=== PATIENT | female | born 1960 | race Caucasian/White ===

== ENCOUNTER 2017-06-15 22:06 | Emergency (ER) | payer OTHER ==
[~2017-06-15] VITALS: Ht 167.6 cm; Wt 66.0 kg
[~2017-06-15 22:06] MED LIST: IBUP800T23 PO; LISI-360 PO
[2017-06-15 22:25] VITALS: BP 150/82; PULSE 80; RESP 16; TEMP 98.6; O2SAT 98
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
[2017-06-16 03:52] LABS: AUTOMATED NEUTROPHIL # 3.1 TH/MM3 (1.8-7.7); BASOPHIL # 0.1 TH/MM3 (0-0.2); BASOPHIL % 1.3 % (0.0-2.0); EOSINOPHIL # 0.2 TH/MM3 (0-0.4); EOSINOPHIL % 2.3 % (0.0-4.0); HEMATOCRIT 42.6 % (35.0-46.0); HEMO FLAGS DIFF FINAL; LYMPH % 44.7 % (9.0-44.0); LYMPHOCYTE # 3.1 TH/MM3 (1.0-4.8); MEAN CELL VOLUME 96.8 FL (80.0-100.0); MEAN CORPUSCULAR HEMOGLOBIN 32.3 PG (27.0-34.0); MEAN CORPUSCULAR HGB CONC 33.4 % (32.0-36.0); MONO % 6.6 % (0.0-8.0); NEUT % 45.1 % (16.0-70.0); PLATELET COUNT 179 TH/MM3 (150-450); RED CELL DISTRIBUTION WIDTH 13.3 % (11.6-17.2); WHITE BLOOD COUNT 6.9 TH/MM3 (4.0-11.0)
[2017-06-16 04:27] LABS: ALKALINE PHOSPHATASE 101 U/L (45-117); ALT (GPT) 17 U/L (10-53); ANION GAP 10 MEQ/L (5-15); AST (GOT) 14 U/L (15-37); BLOOD UREA NITROGEN 6 MG/DL (7-18); CHLORIDE 107 MEQ/L (98-107); GLOMERULAR FILTRATION RATE 88 ML/MIN (>89); POTASSIUM 3.8 MEQ/L (3.5-5.1); SODIUM (NA) 141 MEQ/L (136-145); TOTAL BILIRUBIN ADULT 0.4 MG/DL (0.2-1.0)
[2017-06-16 04:30] LABS: BACTERIA, URINE RARE /hpf; BLOOD, URINE NEG (NEG); COMMENT (UR) CULT NOT INDICATED; CULTURE IF INDICATED CULT NOT INDICATED; GLUCOSE,URINE NEG (NEG); KETONE, URINE NEG (NEG); NITRITE,URINE NEG (NEG); URINE COLOR COLORLESS (YELLW/STRAW)
[2017-06-16 07:20] VITALS: BP 159/95; PULSE 67; RESP 20; TEMP 98; O2SAT 97
[2017-06-16] MEDS ORDERED: ACETAMINOPHEN 325 MG TAB PO ONE (10:00)
[2017-06-16 11:41] VITALS: BP 182/93; PULSE 77; RESP 18
[2017-06-16 17:54] VITALS: BP 200/116; PULSE 65; RESP 20; O2SAT 100
[2017-06-16 17:58] VITALS: BP 197/101
[2017-06-16] MEDS ORDERED: CYCL5TAB PO (19:22)
[2017-06-16] MEDS ORDERED: LISI10TA3 PO (19:22)
[2017-06-16] MEDS ORDERED: VERA40TA PO (19:22)
[2017-06-16] MEDS ORDERED: cloNIDine HCL 0.1 MG TAB PO ONE (19:45)
[2017-06-16] MEDS ORDERED: LISINOPRIL 10 MG TAB PO ONE (19:45)
[2017-06-16 23:07] VITALS: BP 108/54; PULSE 66; RESP 16
[2017-06-17 02:41] VITALS: BP 118/55; PULSE 51; RESP 16
[2017-06-17 06:49] VITALS: BP 137/58; PULSE 76; RESP 20; O2SAT 98
--- NOTE | 2017-06-17 07:25 | PD ---
Data Data Last Documented VS Vital Signs Date Time Temp Pulse Resp B/P (MAP) Pulse Ox O2 Delivery O2 Flow Rate FiO2 06/17/17 06:49 76 20 137/58 (84) 98 06/16/17 17:54 Room Air 06/16/17 07:20 98.0 Orders Orders Complete Blood Count With Diff (06/15/17 22:32) Comprehensive Metabolic Panel (06/15/17 22:32) Urinalysis - C+S If Indicated (06/15/17 22:32) Psych Screen (06/15/17 22:32) Drug Screen, Random Urine (06/15/17 22:32) Diet Regular Basic (06/16/17 Breakfast) Acetaminophen (Tylenol) (06/16/17 10:00) Lisinopril (Prinivil) (06/16/17 19:45) Clonidine (Catapres) (06/16/17 19:45) Diet Regular Basic (06/17/17 Breakfast) Labs Laboratory Tests Test 06/15/17 22:32 06/15/17 22:45 06/15/17 23:16 Blood Urea Nitrogen 6 MG/DL Creatinine 0.69 MG/DL Random Glucose 92 MG/DL Total Protein 7.7 GM/DL Albumin 3.8 GM/DL Calcium Level 8.8 MG/DL Alkaline Phosphatase 101 U/L Aspartate Amino Transf (AST/SGOT) 14 U/L Alanine Aminotransferase (ALT/SGPT) 17 U/L Total Bilirubin 0.4 MG/DL Sodium Level 141 MEQ/L Potassium Level 3.8 MEQ/L Chloride Level 107 MEQ/L Carbon Dioxide Level 24.0 MEQ/L Anion Gap 10 MEQ/L Estimat Glomerular Filtration Rate 88 ML/MIN Urine Opiates Screen NEG Urine Barbiturates Screen NEG Urine Amphetamines Screen NEG Urine Benzodiazepines Screen NEG Urine Cocaine Screen NEG Urine Cannabinoids Screen NEG Urine Color COLORLESS Urine Turbidity CLEAR Urine pH 5.0 Urine Specific [place] 1.002 Urine Protein NEG mg/dL Urine Glucose (UA) NEG mg/dL Urine Ketones NEG mg/dL Urine Occult Blood NEG Urine Nitrite NEG Urine Bilirubin NEG Urine Urobilinogen LESS THAN 2.0 MG/DL Urine Leukocyte Esterase NEG Urine RBC LESS THAN 1 /hpf Urine WBC 1 /hpf Urine Bacteria RARE /hpf Microscopic Urinalysis Comment CULT NOT INDICATED White Blood Count 6.9 TH/MM3 Red Blood Count 4.40 MIL/MM3 Hemoglobin 14.2 GM/DL Hematocrit 42.6 % Mean Corpuscular Volume 96.8 FL Mean Corpuscular Hemoglobin 32.3 PG Mean Corpuscular Hemoglobin Concent 33.4 % Red Cell Distribution Width 13.3 % Platelet Count 179 TH/MM3 Mean Platelet Volume 7.5 FL Neutrophils (%) (Auto) 45.1 % Lymphocytes (%) (Auto) 44.7 % Monocytes (%) (Auto) 6.6 % Eosinophils (%) (Auto) 2.3 % Basophils (%) (Auto) 1.3 % Neutrophils # (Auto) 3.1 TH/MM3 Lymphocytes # (Auto) 3.1 TH/MM3 Monocytes # (Auto) 0.5 TH/MM3 Eosinophils # (Auto) 0.2 TH/MM3 Basophils # (Auto) 0.1 TH/MM3 CBC Comment DIFF FINAL Differential Comment [facility] Supervised Visit with IDALIA: No Narrative Course I was approached by Chelsie nurse who informed me the psychiatrist had seen the patient and lifted her Villegas Act. She was given information for follow up with [facility] and is safe for discharge with her boyfriend per psychiatry. Diagnosis Primary Impression: Suicidal ideations Condition: Stable Triny Mas MD Jun 17, 2017 07:25
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
== END 2017-06-17 08:31 | disposition home or self-care (01) ==
LOC: NEPD 22:06 → NEPJ 06-17 08:31
DX: F43.20 Adjustment disorder, unspecified (principal); R45.851 Suicidal ideations; F10.10 Alcohol abuse, uncomplicated; I10 Essential (primary) hypertension; J44.9 Chronic obstructive pulmonary disease, unspecified; G47.30 Sleep apnea, unspecified
CPT/HCPCS: 80053; 80307; 81001; 85025; 99284

== ENCOUNTER 2017-08-05 03:44 | Emergency (ER) | payer OTHER ==
[~2017-08-05] VITALS: Ht 167.6 cm; Wt 65.0 kg
[~2017-08-05 03:44] MED LIST changes: +CYCL5TAB PO; -IBUP800T23 PO; -LISI-360 PO; +LISI10TA3 PO; +VERA40TA PO
[2017-08-05 03:55] VITALS: BP 115/72; PULSE 72; RESP 16; TEMP 97.8; O2SAT 97
[2017-08-05 05:17] LABS: BASOPHIL # 0.1 TH/MM3 (0-0.2); BASOPHIL % 1.8 % (0.0-2.0); EOSINOPHIL # 0.1 TH/MM3 (0-0.4); EOSINOPHIL % 1.5 % (0.0-4.0); HEMATOCRIT 31.7 % (35.0-46.0); LYMPHOCYTE # 2.7 TH/MM3 (1.0-4.8); MEAN CELL VOLUME 96.7 FL (80.0-100.0); MEAN CORPUSCULAR HEMOGLOBIN 32.4 PG (27.0-34.0); MEAN CORPUSCULAR HGB CONC 33.5 % (32.0-36.0); MONO % 4.3 % (0.0-8.0); NEUT % 24.4 % (16.0-70.0); PLATELET COUNT 130 TH/MM3 (150-450); RED BLOOD COUNT 3.28 MIL/MM3 (4.00-5.30); RED CELL DISTRIBUTION WIDTH 13.4 % (11.6-17.2)
[2017-08-05 05:22] LABS: HEMO FLAGS AUTO DIFF
[2017-08-05 05:29] VITALS: BP 102/64
[2017-08-05 05:32] VITALS: BP 100/66; RESP 18
[2017-08-05 05:34] VITALS: BP 99/59; RESP 18
[2017-08-05 05:46] LABS: MAGNESIUM 2.1 MG/DL (1.5-2.5); POTASSIUM 3.5 MEQ/L (3.5-5.1)
[2017-08-05] MEDS ORDERED: SODIUM CHLOR 0.9% 1000 ML INJ 1,000 ML IV ONE (06:15)
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
--- NOTE | 2017-08-05 06:45 | PD ---
Physical Exam Date Seen by Provider: Aug 05, 2017 Time Seen by Provider: 06:43 Narrative Skin: Patient is a bleeding varicosity to the right lower lateral leg. Data Data Last Documented VS Vital Signs Date Time Temp Pulse Resp B/P (MAP) Pulse Ox O2 Delivery O2 Flow Rate FiO2 08/05/17 05:34 89 18 99/59 (72) 08/05/17 04:07 98 Room Air 08/05/17 03:55 97.8 Orders Orders Electrocardiogram (08/05/17 ) Basic Metabolic Panel (Bmp) (08/05/17 05:02) Complete Blood Count With Diff (08/05/17 05:02) Magnesium (Mg) (08/05/17 05:02) Troponin I (08/05/17 05:02) Blood Glucose (08/05/17 05:02) Orthostatic Vital Signs (08/05/17 05:02) Protein Corrected Calcium(Pcc) (08/05/17 05:00) Sodium Chlor 0.9% 1000 Ml Inj (Ns 1000 M (08/05/17 06:15) Labs Laboratory Tests Test 08/05/17 05:00 White Blood Count 4.0 TH/MM3 Red Blood Count 3.28 MIL/MM3 Hemoglobin 10.6 GM/DL Hematocrit 31.7 % Mean Corpuscular Volume 96.7 FL Mean Corpuscular Hemoglobin 32.4 PG Mean Corpuscular Hemoglobin Concent 33.5 % Red Cell Distribution Width 13.4 % Platelet Count 130 TH/MM3 Mean Platelet Volume 7.6 FL Neutrophils (%) (Auto) 24.4 % Lymphocytes (%) (Auto) 68.0 % Monocytes (%) (Auto) 4.3 % Eosinophils (%) (Auto) 1.5 % Basophils (%) (Auto) 1.8 % Neutrophils # (Auto) 1.0 TH/MM3 Lymphocytes # (Auto) 2.7 TH/MM3 Monocytes # (Auto) 0.2 TH/MM3 Eosinophils # (Auto) 0.1 TH/MM3 Basophils # (Auto) 0.1 TH/MM3 CBC Comment AUTO DIFF Blood Urea Nitrogen 13 MG/DL Creatinine 0.68 MG/DL Random Glucose 71 MG/DL Total Protein 6.0 GM/DL Calcium Level 7.4 MG/DL Magnesium Level 2.1 MG/DL Sodium Level 144 MEQ/L Potassium Level 3.5 MEQ/L Chloride Level 111 MEQ/L Carbon Dioxide Level 21.0 MEQ/L Anion Gap 12 MEQ/L Estimat Glomerular Filtration Rate 90 ML/MIN Protein Corrected Calcium 8.0 MG/DL Troponin I 0.05 NG/ML [facility] Medical Record Reviewed: Yes Supervised Visit with IDALIA: Yes Differential Diagnosis . Narrative Course Patient's varicosity ligated with 2 simple sutures. Procedures Procedure Narrative LACERATION LOCATION: Right lower lateral leg LENGTH: 3 mm NUMBER OF STITCHES/FELIPE: 2 REPAIR: The area of the laceration was prepped with Betadine and sterilely draped. The laceration was infiltrated with 1% lidocaine-]. The wound was copiously irrigated and explored without evidence of foreign body, tendon injury or neurovascular injury. The wound was closed using 4-0 proline. This was a simple single layer repair. A sterile dressing was applied. The patient was advised to keep the dressing clean and dry. Patient tolerated the procedure well. Diagnosis Primary Impression: Bleeding from varicose veins of right lower extremity Patient Instructions: General Instructions Additional Instruction: Rest. Elevation. Tylenol Daily wound care with soap, water, Neosporin. Sutures out in 7 days. Return to the ER if any problems. Med/Other Pt SpecificInfo: Wound Care Disposition: DISCHARGE HOME Condition: Stable Gary Lizarraga Aug 05, 2017 06:45
[2017-08-05 07:02] LABS: PLATELET ESTIMATE SMEAR LOW (NORMAL); PLATELET MORPHOLOGY NORMAL (NORMAL); SCAN/DIFF AUTO DIFF CONFIRMED
[2017-08-05 07:03] VITALS: BP 118/59; PULSE 78; RESP 18; O2SAT 99
--- NOTE | 2017-08-06 08:47 | EKG ---
Date Performed: 08/05/2017 Time Performed: 05:23:02 PTAGE: 57 years EKG: Sinus rhythm VOLTAGE CRITERIA FOR LVH ABNORMAL ECG NO PREVIOUS TRACING DOCTOR: Javier Harrison Interpretating Date/Time 08/06/2017 08:44:52
== END 2017-08-05 08:00 | disposition home or self-care (01) ==
LOC: NEPE 03:44
DX: I83.891 Varicose veins of right lower extremity with other complications (principal); R58 Hemorrhage, not elsewhere classified; R55 Syncope and collapse
CPT/HCPCS: 12001; 80048; 83735; 84155; 84484; 85025; 93005; 99284; J7030

== ENCOUNTER 2017-08-20 14:23 | Emergency (ER) | payer OTHER ==
[~2017-08-20] VITALS: Ht 167.6 cm; Wt 68.0 kg
[2017-08-20 14:24] VITALS: BP 144/72; PULSE 73; RESP 16; TEMP 97.8; O2SAT 98
[2017-08-20] MEDS ORDERED: NAPR-855 PO (15:43)
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
[2017-08-20] MEDS ORDERED: LISI10TA3 PO (15:59)
[2017-08-20] MEDS ORDERED: VERA40TA PO (15:59)
== END 2017-08-20 16:17 | disposition home or self-care (01) ==
LOC: NEPK 14:23 → NETRI 16:17
DX: Z48.02 Encounter for removal of sutures (principal); F31.9 Bipolar disorder, unspecified; F41.9 Anxiety disorder, unspecified; I10 Essential (primary) hypertension; K21.9 Gastro-esophageal reflux disease without esophagitis; J44.9 Chronic obstructive pulmonary disease, unspecified
CPT/HCPCS: 99281

== ENCOUNTER 2018-02-02 14:34 | Emergency (ER) | payer OTHER ==
[~2018-02-02] VITALS: Ht 167.6 cm; Wt 56.0 kg
[~2018-02-02 14:34] MED LIST changes: -CYCL5TAB PO; +NAPR-855 PO
[2018-02-02 14:49] VITALS: BP 178/91; PULSE 78; RESP 16; TEMP 97.3; O2SAT 95
[2018-02-02] MEDS ORDERED: IBUPROFEN 600 MG TAB PO ONE (15:15)
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
[2018-02-02 16:35] LABS: AUTOMATED NEUTROPHIL # 3.5 TH/MM3 (1.8-7.7); BASOPHIL # 0.1 TH/MM3 (0-0.2); EOSINOPHIL # 0.2 TH/MM3 (0-0.4); EOSINOPHIL % 2.4 % (0.0-4.0); HEMATOCRIT 41.6 % (35.0-46.0); HEMOGLOBIN 14.2 GM/DL (11.6-15.3); LYMPH % 42.7 % (9.0-44.0); LYMPHOCYTE # 3.1 TH/MM3 (1.0-4.8); MEAN CELL VOLUME 95.7 FL (80.0-100.0); MEAN CORPUSCULAR HEMOGLOBIN 32.6 PG (27.0-34.0); MEAN PLATELET VOLUME 7.4 FL (7.0-11.0); MONO % 5.3 % (0.0-8.0); MONOCYTE # 0.4 TH/MM3 (0-0.9); NEUT % 47.6 % (16.0-70.0); PLATELET COUNT 203 TH/MM3 (150-450); RED BLOOD COUNT 4.35 MIL/MM3 (4.00-5.30); RED CELL DISTRIBUTION WIDTH 12.6 % (11.6-17.2); WHITE BLOOD COUNT 7.3 TH/MM3 (4.0-11.0)
[2018-02-02 16:40] VITALS: BP 95/54; PULSE 72; RESP 20; O2SAT 97
[2018-02-02 16:46] LABS: ALBUMIN 3.6 GM/DL (3.4-5.0); ALT (GPT) 180 U/L (10-53); AST (GOT) 102 U/L (15-37); BICARBONATE 21.7 MEQ/L (21.0-32.0); BLOOD UREA NITROGEN 12 MG/DL (7-18); CALCIUM 8.6 MG/DL (8.5-10.1); CHLORIDE 102 MEQ/L (98-107); CREATININE 0.74 MG/DL (0.50-1.00); GLOMERULAR FILTRATION RATE 81 ML/MIN (>89); GLUCOSE,RANDOM 74 MG/DL (74-106); SODIUM (NA) 139 MEQ/L (136-145)
[2018-02-02 16:56] LABS: ALKALINE PHOSPHATASE 107 U/L (45-117); TOTAL BILIRUBIN ADULT 0.9 MG/DL (0.2-1.0); TOTAL PROTEIN 7.6 GM/DL (6.4-8.2)
[2018-02-02 18:00] VITALS: BP 121/68; PULSE 66; RESP 16; TEMP 98.4; O2SAT 98
[2018-02-02 23:37] VITALS: BP 161/88; PULSE 72; RESP 18; TEMP 98.6; O2SAT 97
[2018-02-03 05:31] VITALS: BP 158/96; PULSE 72; RESP 18; TEMP 98; O2SAT 95
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
--- NOTE | 2018-02-03 10:46 | PD ---
Data Data Last Documented VS Vital Signs Date Time Temp Pulse Resp B/P (MAP) Pulse Ox O2 Delivery O2 Flow Rate FiO2 02/03/18 05:31 98.0 72 18 158/96 (116) 95 Room Air Orders Orders Complete Blood Count With Diff (02/02/18 15:06) Comprehensive Metabolic Panel (02/02/18 15:06) Thyroid Stimulating Hormone (02/02/18 15:06) Psych Screen (02/02/18 15:06) Drug Screen, Random Urine (02/02/18 15:06) Alcohol (Ethanol) (02/02/18 15:06) Ibuprofen (Motrin) (02/02/18 15:15) Diet Regular Basic (02/02/18 Dinner) Diet Regular Basic (02/03/18 Breakfast) Labs Laboratory Tests Test 02/02/18 16:00 02/02/18 17:00 White Blood Count 7.3 TH/MM3 Red Blood Count 4.35 MIL/MM3 Hemoglobin 14.2 GM/DL Hematocrit 41.6 % Mean Corpuscular Volume 95.7 FL Mean Corpuscular Hemoglobin 32.6 PG Mean Corpuscular Hemoglobin Concent 34.0 % Red Cell Distribution Width 12.6 % Platelet Count 203 TH/MM3 Mean Platelet Volume 7.4 FL Neutrophils (%) (Auto) 47.6 % Lymphocytes (%) (Auto) 42.7 % Monocytes (%) (Auto) 5.3 % Eosinophils (%) (Auto) 2.4 % Basophils (%) (Auto) 2.0 % Neutrophils # (Auto) 3.5 TH/MM3 Lymphocytes # (Auto) 3.1 TH/MM3 Monocytes # (Auto) 0.4 TH/MM3 Eosinophils # (Auto) 0.2 TH/MM3 Basophils # (Auto) 0.1 TH/MM3 CBC Comment DIFF FINAL Differential Comment Blood Urea Nitrogen 12 MG/DL Creatinine 0.74 MG/DL Random Glucose 74 MG/DL Total Protein 7.6 GM/DL Albumin 3.6 GM/DL Calcium Level 8.6 MG/DL Alkaline Phosphatase 107 U/L Aspartate Amino Transf (AST/SGOT) 102 U/L Alanine Aminotransferase (ALT/SGPT) 180 U/L Total Bilirubin 0.9 MG/DL Sodium Level 139 MEQ/L Potassium Level 3.9 MEQ/L Chloride Level 102 MEQ/L Carbon Dioxide Level 21.7 MEQ/L Anion Gap 15 MEQ/L Estimat Glomerular Filtration Rate 81 ML/MIN Thyroid Stimulating Hormone 3rd Gen 0.401 uIU/ML Ethyl Alcohol Level 244 MG/DL Urine Opiates Screen NEG Urine Barbiturates Screen NEG Urine Amphetamines Screen NEG Urine Benzodiazepines Screen NEG Urine Cocaine Screen POS Urine Cannabinoids Screen NEG MDM Medical Record Reviewed: Yes Supervised Visit with IDALIA: No Narrative Course Please see previous providers notes. This patient has been cleared by the psychiatry team. She has no medical issues that would warrant further hospitalization. She is stable for discharge. Diagnosis Primary Impression: Alcohol-induced mood disorder Additional Impression: Cocaine abuse Med/Other Pt SpecificInfo: No Change to Meds Disposition: 01 DISCHARGE HOME Condition: Stable Phillip Weston February 03, 2018 10:46
== END 2018-02-03 11:02 | disposition home or self-care (01) ==
LOC: NEPD 14:34 → NEPJ 02-03 11:02
DX: F10.94 Alcohol use, unspecified with alcohol-induced mood disorder (principal); F14.10 Cocaine abuse, uncomplicated; F31.9 Bipolar disorder, unspecified; F41.9 Anxiety disorder, unspecified; I10 Essential (primary) hypertension; J44.9 Chronic obstructive pulmonary disease, unspecified; K21.9 Gastro-esophageal reflux disease without esophagitis; G47.30 Sleep apnea, unspecified; Z79.899 Other long term (current) drug therapy
CPT/HCPCS: 80053; 80307; 84443; 85025; 99283

== ENCOUNTER 2018-02-23 19:19 | Emergency (ER) | payer OTHER ==
[~2018-02-23 19:19] MED LIST changes: -NAPR-855 PO
[2018-02-23 21:03] VITALS: BP 138/84; PULSE 91; RESP 18; TEMP 97.4; O2SAT 98
[2018-02-23 21:43] VITALS: BP 125/90; PULSE 85; RESP 18; TEMP 98.2; O2SAT 97
[2018-02-23 22:00] LABS: AUTOMATED NEUTROPHIL # 1.7 TH/MM3 (1.8-7.7); BASOPHIL # 0.1 TH/MM3 (0-0.2); BASOPHIL % 1.4 % (0.0-2.0); EOSINOPHIL # 0.1 TH/MM3 (0-0.4); EOSINOPHIL % 2.1 % (0.0-4.0); HEMATOCRIT 40.7 % (35.0-46.0); HEMOGLOBIN 13.8 GM/DL (11.6-15.3); LYMPH % 54.9 % (9.0-44.0); LYMPHOCYTE # 2.8 TH/MM3 (1.0-4.8); MEAN CELL VOLUME 93.3 FL (80.0-100.0); MEAN CORPUSCULAR HEMOGLOBIN 31.6 PG (27.0-34.0); MEAN CORPUSCULAR HGB CONC 33.9 % (32.0-36.0); MEAN PLATELET VOLUME 7.5 FL (7.0-11.0); MONO % 8.9 % (0.0-8.0); MONOCYTE # 0.5 TH/MM3 (0-0.9); NEUT % 32.7 % (16.0-70.0); PLATELET COUNT 155 TH/MM3 (150-450); RED BLOOD COUNT 4.36 MIL/MM3 (4.00-5.30); RED CELL DISTRIBUTION WIDTH 12.8 % (11.6-17.2); WHITE BLOOD COUNT 5.1 TH/MM3 (4.0-11.0)
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
[2018-02-23 22:03] LABS: BACTERIA, URINE RARE /hpf; BILIRUBIN, URINE NEG (NEG); BLOOD, URINE NEG (NEG); GLUCOSE,URINE NEG (NEG); KETONE, URINE NEG (NEG); NITRITE,URINE NEG (NEG); URINE COLOR LIGHT-YELLOW (YELLW/STRAW); URINE LEUKOCYTE ESTERASE TRACE (NEG)
[2018-02-23 22:23] LABS: ALBUMIN 3.8 GM/DL (3.4-5.0); AST (GOT) 130 U/L (15-37); BICARBONATE 26.3 MEQ/L (21.0-32.0); BLOOD UREA NITROGEN 8 MG/DL (7-18); CALCIUM 8.6 MG/DL (8.5-10.1); CHLORIDE 103 MEQ/L (98-107); CREATININE 0.77 MG/DL (0.50-1.00); GLOMERULAR FILTRATION RATE 78 ML/MIN (>89); GLUCOSE,RANDOM 93 MG/DL (74-106); SODIUM (NA) 140 MEQ/L (136-145)
[2018-02-23 22:24] LABS: ALT (GPT) 106 U/L (10-53)
[2018-02-23 22:28] LABS: TOXIC GRANULATION 1+ (NORMAL)
[2018-02-23 22:35] LABS: ALKALINE PHOSPHATASE 122 U/L (45-117); TOTAL BILIRUBIN ADULT 0.6 MG/DL (0.2-1.0); TOTAL PROTEIN 8.1 GM/DL (6.4-8.2)
[2018-02-23 22:36] LABS: ACETAMINOPHEN LESS THAN 2.0 MCG/ML (10.0-30.0)
[2018-02-23] MEDS ORDERED: LORazepam 2 MG TAB PO PRN (22:45)
[2018-02-23] MEDS ORDERED: LORazepam 1 MG TAB PO PRN (22:45)
[2018-02-23] MEDS ORDERED: LORazepam 2 MG/ML VIAL IV PUSH PRN ×4 (22:45)
[2018-02-23] MEDS ORDERED: FLUMAZENIL 0.5 MG/5 ML VIAL IV PUSH PRN (22:45)
[2018-02-24 02:09] VITALS: BP 120/71; PULSE 80; RESP 18; TEMP 98.2; O2SAT 97
[2018-02-24 06:31] VITALS: BP 116/70; PULSE 88; RESP 18; TEMP 98.6; O2SAT 95
--- NOTE | 2018-02-24 09:52 | PD ---
Physical Exam Date Seen by Provider: February 24, 2018 Narrative 57-year-old female presented to the emergency department for voluntary admission for polysubstance use. She was evaluated by the previous provider and medically cleared to see psych. She is due for transport to the [facility] this morning however, she says that she must go home prior to going to the clinic. She says that she would drive herself to the facility. She will be discharged home and advised to follow-up as discussed. Data Data Last Documented VS Vital Signs Date Time Temp Pulse Resp B/P (MAP) Pulse Ox O2 Delivery O2 Flow Rate FiO2 02/24/18 10:00 02/24/18 06:31 98.6 88 18 95 Room Air Orders Orders Complete Blood Count With Diff (02/23/18 21:31) Comprehensive Metabolic Panel (02/23/18 21:31) Urinalysis - C+S If Indicated (02/23/18 21:31) Ed Urine Pregnancytest Poc (02/23/18 21:31) Psych Screen (02/23/18 21:31) Drug Screen, Random Urine (02/23/18 21:31) Alcohol (Ethanol) (02/23/18 21:31) Salicylates (Aspirin) (02/23/18 21:31) Tylenol (Acetaminophen) (02/23/18 21:31) Alcohol Withdrawal Asmt-Ciwa ONCE (02/23/18 22:42) Flumazenil Inj (Romazicon Inj) (02/23/18 22:45) Lorazepam (Ativan) (02/23/18 22:45) Lorazepam Inj (Ativan Inj) (02/23/18 22:45) Lorazepam (Ativan) (02/23/18 22:45) Lorazepam Inj (Ativan Inj) (02/23/18 22:45) Lorazepam Inj (Ativan Inj) (02/23/18 22:45) Lorazepam Inj (Ativan Inj) (02/23/18 22:45) Diet Regular Basic (02/24/18 Breakfast) Ed Discharge Order (02/24/18 08:52) Labs Laboratory Tests Test 02/23/18 21:28 02/23/18 21:31 02/23/18 21:35 Urine Opiates Screen NEG Urine Barbiturates Screen NEG Urine Amphetamines Screen NEG Urine Benzodiazepines Screen NEG Urine Cocaine Screen NEG Urine Cannabinoids Screen NEG Urine Color LIGHT-YELLOW Urine Turbidity CLEAR Urine pH 5.0 Urine Specific [place] 1.002 Urine Protein NEG mg/dL Urine Glucose (UA) NEG mg/dL Urine Ketones NEG mg/dL Urine Occult Blood NEG Urine Nitrite NEG Urine Bilirubin NEG Urine Urobilinogen LESS THAN 2.0 MG/DL Urine Leukocyte Esterase TRACE Urine Bacteria RARE /hpf Microscopic Urinalysis Comment CULT NOT INDICATED White Blood Count 5.1 TH/MM3 Red Blood Count 4.36 MIL/MM3 Hemoglobin 13.8 GM/DL Hematocrit 40.7 % Mean Corpuscular Volume 93.3 FL Mean Corpuscular Hemoglobin 31.6 PG Mean Corpuscular Hemoglobin Concent 33.9 % Red Cell Distribution Width 12.8 % Platelet Count 155 TH/MM3 Mean Platelet Volume 7.5 FL Neutrophils (%) (Auto) 32.7 % Lymphocytes (%) (Auto) 54.9 % Monocytes (%) (Auto) 8.9 % Eosinophils (%) (Auto) 2.1 % Basophils (%) (Auto) 1.4 % Neutrophils # (Auto) 1.7 TH/MM3 Lymphocytes # (Auto) 2.8 TH/MM3 Monocytes # (Auto) 0.5 TH/MM3 Eosinophils # (Auto) 0.1 TH/MM3 Basophils # (Auto) 0.1 TH/MM3 CBC Comment AUTO DIFF Differential Comment AUTO DIFF CONFIRMED Toxic Granulation 1+ Platelet Estimate NORMAL Platelet Morphology Comment NORMAL Blood Urea Nitrogen 8 MG/DL Creatinine 0.77 MG/DL Random Glucose 93 MG/DL Total Protein 8.1 GM/DL Albumin 3.8 GM/DL Calcium Level 8.6 MG/DL Alkaline Phosphatase 122 U/L Aspartate Amino Transf (AST/SGOT) 130 U/L Alanine Aminotransferase (ALT/SGPT) 106 U/L Total Bilirubin 0.6 MG/DL Sodium Level 140 MEQ/L Potassium Level 3.8 MEQ/L Chloride Level 103 MEQ/L Carbon Dioxide Level 26.3 MEQ/L Anion Gap 11 MEQ/L Estimat Glomerular Filtration Rate 78 ML/MIN Salicylates Level LESS THAN 1.7 MG/DL Acetaminophen Level LESS THAN 2.0 MCG/ML Ethyl Alcohol Level 309 MG/DL [facility] Supervised Visit with IDALIA: No Diagnosis Primary Impression: Medical clearance for psychiatric admission Additional Impression: Alcohol abuse Disposition: 01 DISCHARGE HOME Condition: Stable JusticeBecky February 24, 2018 09:52
== END 2018-02-24 10:04 | disposition home or self-care (01) ==
LOC: NEPJ 19:19
DX: F10.10 Alcohol abuse, uncomplicated (principal); I10 Essential (primary) hypertension; Y90.8 Blood alcohol level of 240 mg/100 ml or more; Z79.899 Other long term (current) drug therapy
CPT/HCPCS: 80053; 80307; 81001; 84703; 85025; 99283